=== PATIENT | female | born 1990 | race African-American/Black ===

== ENCOUNTER 2023-05-19 10:08 | Inpatient (IN) | payer MEDICARE ==
[2023-05-16 14:10] LABS: BASOPHILS % 0.7 % (0.0-1.0); EOSINOPHILS # (AUTO) 0.1 (0.0-0.4); EOSINOPHILS % 2.3 % (0.0-6.0); HEMATOCRIT 33.7 % (34.2-44.1); HEMOGLOBIN 10.8 g/dL (12.0-16.0); LYMPHOCYTES # (AUTO) 2.1 (1.0-3.2); LYMPHOCYTES % 36.4 % (18.0-39.1); MEAN CORPUSCULAR HEMOGLOBIN 25.1 pg (28-32); MEAN CORPUSCULAR VOLUME 78.2 fL (81-99); MONOCYTES # (AUTO) 0.9 (0.2-0.8); MONOCYTES % 16.3 % (4.4-11.3); NEUTROPHILS # (AUTO) 2.5 (2.1-6.9); NEUTROPHILS % 44.1 % (38.7-80.0); PLATELET COUNT 322 x10e3/uL (140-360); RED BLOOD COUNT 4.31 x10e6/uL (3.6-5.1); RED CELL DISTRIBUTION WIDTH 16.8 % (11.7-14.4)
[2023-05-19] VITALS (9 sets, daily range): BP systolic 139–150; BP diastolic 97–111; PULSE 13–113; RESP 16–17; TEMP 97.4–97.5; O2SAT 94–100
[~2023-05-19] VITALS: Ht 149.9 cm; Wt 134.3 kg
[2023-05-19] MEDS: SODIUM CHLORIDE 0.9% 1000ML 1,000 ML IV SCH ×2 (07:45→15:05)
[~2023-05-19 10:08] MED LIST: ADDERALL XR 3030 MG PO; ARMOUR THYROID30 MG PO; SCOPOLAMINE 1 MG PATCH TOP SCH
[2023-05-19] MEDS ORDERED: SCOPOLAMINE 1 MG PATCH ONE (10:10)
[2023-05-19] MEDS ORDERED: CEFAZOLIN SODIUM 2 GM ONE (10:10)
[2023-05-19] MEDS ORDERED: LACTATED RINGER'S 1,000 ML ONE ×2 (10:11→10:20)
[2023-05-19] MEDS ORDERED: VITAMIN D310 MCG PO (10:18)
[2023-05-19] MEDS ORDERED: BUPIVACAINE 0.25% 30ML SDV ONE ×2 (10:31→13:27)
[2023-05-19] MEDS ORDERED: KETAMINE 50MG/5ML SYR ONE (12:04)
[2023-05-19] MEDS ORDERED: HYDROMORPHONE 1MG/1ML INJ ONE (12:05)
[2023-05-19] MEDS ORDERED: ACETAMINOPHEN 1000 MG/100 ML 100 ML IV ONE (12:05)
[2023-05-19] MEDS ORDERED: PROPOFOL IV EMULSION 100 ML IV ONE (12:05)
[2023-05-19] MEDS ORDERED: PROPOFOL IV EMULSION 10 MG/ML 20 ML VIAL ONE (12:30)
[2023-05-19] MEDS ORDERED: LIDOCAINE HCL 2% LOCAL INJ 5 ML SDV VIAL INJ ONE (12:30)
[2023-05-19] MEDS ORDERED: NEOSTIGMINE 1 MG/ML 10ML VIAL ONE (12:30)
[2023-05-19] MEDS ORDERED: SUCCINYLCHOLINE CHLORIDE 20 MG/ML 10ML VIAL ONE (12:30)
[2023-05-19] MEDS ORDERED: ONDANSETRON HCL INJ 2MG/ML 2ML 2 MG/ML VIAL ONE (12:30)
[2023-05-19] MEDS ORDERED: POVIDONE IODINE 0.05% 0.05 % ML PO ONE (12:30)
[2023-05-19] MEDS ORDERED: GLYCOPYRROLATE INJ 0.2 MG/ML VIAL ONE (12:30)
[2023-05-19] MEDS ORDERED: ROCURONIUM BROMIDE 10 MG/ML 5ML VIAL IV ONE (12:30)
[2023-05-19] MEDS ORDERED: DEXAMETHASONE SOD PHOS INJ 4 MG/ML SDV ONE (12:30)
[2023-05-19] MEDS ORDERED: MIDAZOLAM HCL 2 MG/2 ML VIAL ONE (12:44)
[2023-05-19] MEDS ORDERED: FENTANYL CITRATE/PF 100MCG/2 ML INJ ONE (12:44)
[2023-05-19] MEDS ORDERED: SUGAMMADEX SODIUM 200 MG/2 ML VIAL IV ONE ×2 (13:21→13:38)
[2023-05-19] MEDS ORDERED: BUPIVACAINE 0.5%/EPI 30 ML SDV INJ ONE (13:27)
[2023-05-19] MEDS: ONDANSETRON HCL INJ 2MG/ML 2ML 2 MG/ML VIAL IV PRN ×2 (15:04→20:39)
[2023-05-19] MEDS: Morphine 2mg Syringe 2 MG/ML SYR IV PRN ×2 (15:04→21:31)
[2023-05-19] MEDS: HYDROCODONE/APAP 7.5MG-325MG 1 EA TAB PO PRN (17:49)
[2023-05-19] MEDS: ENOXAPARIN SOD INJ 40 MG/0.4 ML SYR SC SCH (20:40)
[2023-05-20] VITALS (9 sets, daily range): BP systolic 124–162; BP diastolic 61–111; PULSE 91–106; RESP 16–18; TEMP 97.7–98.6; O2SAT 100
[2023-05-20] MEDS: ONDANSETRON HCL INJ 2MG/ML 2ML 2 MG/ML VIAL IV PRN ×3 (03:02→11:56)
[2023-05-20] MEDS: SODIUM CHLORIDE 0.9% 1000ML 1,000 ML IV SCH (03:03)
[2023-05-20] MEDS: Morphine 2mg Syringe 2 MG/ML SYR IV PRN (03:03)
[2023-05-20 04:56] LABS: BASOPHILS % 0.2 % (0.0-1.0); HEMATOCRIT 33.9 % (34.2-44.1); LYMPHOCYTES # (AUTO) 0.9 (1.0-3.2); LYMPHOCYTES % 8.8 % (18.0-39.1); MEAN CORPUSCULAR HEMOGLOBIN 23.6 pg (28-32); MEAN CORPUSCULAR HGB CONC 29.5 g/dL (31-35); MEAN CORPUSCULAR VOLUME 80.1 fL (81-99); MONOCYTES # (AUTO) 0.5 (0.2-0.8); MONOCYTES % 4.4 % (4.4-11.3); NEUTROPHILS % 86.2 % (38.7-80.0); PLATELET COUNT 298 x10e3/uL (140-360); RED BLOOD COUNT 4.23 x10e6/uL (3.6-5.1); RED CELL DISTRIBUTION WIDTH 16.5 % (11.7-14.4)
[2023-05-20 05:22] LABS: ALBUMIN 3.1 g/dL (3.5-5.0); ALBUMIN/GLOBULIN RATIO 0.8 (0.8-2.0); ANION GAP 14.4 mmol/L (8-16); CALCIUM 8.7 mg/dL (8.4-10.2); CREATININE, SERUM 0.72 mg/dL (0.57-1.11); MAGNESIUM 1.8 MG/DL (1.3-2.1); PHOSPHORUS 3.3 MG/DL (2.3-4.7); POTASSIUM 4.4 mmol/L (3.5-5.1)
[2023-05-20] MEDS: HYDROCODONE/APAP 7.5MG-325MG 1 EA TAB PO PRN (08:23)
[2023-05-20] MEDS: ENOXAPARIN SOD INJ 40 MG/0.4 ML SYR SC SCH (09:05)
[2023-05-20] MEDS ORDERED: CLONIDINE HCL 0.1 MG TAB PO ONE (11:45)
== END 2023-05-20 13:03 | disposition home or self-care (01) | DRG 620 ==
LOC: OR 10:08 → PACU V 13:12 → MED/SURG 14:34
PROVIDERS: ADMIT Internal Medicine; ATTEND Internal Medicine
PROC: 0DB64Z3 Excision of Stomach, Percutaneous Endoscopic Approach, Vertical (ICD-10-PCS; principal; 2023-05-19 12:22)
DX: E66.01 Morbid (severe) obesity due to excess calories (principal); F84.0 Autistic disorder; I10 Essential (primary) hypertension; Z68.44 Body mass index [BMI] 60.0-69.9, adult; E55.9 Vitamin D deficiency, unspecified; E03.9 Hypothyroidism, unspecified; Z79.899 Other long term (current) drug therapy; Z82.49 Family history of ischemic heart disease and other diseases of the circulatory system; Z83.3 Family history of diabetes mellitus
CPT/HCPCS: 36415; 80053; 81025; 83735; 84100; 85025; 94799; J0330; J1100; J1170; J1650; J2001; J2250; J2270; J2405; J2710; J7030